=== PATIENT | female | born 2005 | race Caucasian/White ===

== ENCOUNTER 2023-11-07 10:28 | Emergency (ER) | payer OTHER ==
[2023-11-07] MEDS ORDERED: Ketorolac 10 MG Tab PO ONE (11:12)
[2023-11-07] MEDS ORDERED: traMADol 50 MG Tab PO ONE (11:12)
[2023-11-07] MEDS ORDERED: Take Home: Azithromycin 250 MG 5 Day, 6 Tab Pack PO ONE (11:14)
[2023-11-07] MEDS ORDERED: Take Home: traMADol 50 MG, 4 Tab Pack PO ONE (11:15)
[2023-11-07 11:26] VITALS: BP 128/69; PULSE 85
== END 2023-11-07 11:31 | disposition home or self-care (01) ==
LOC: LL.ED 10:28
DX: H66.92 Otitis media, unspecified, left ear (principal); Z88.0 Allergy status to penicillin; Z79.899 Other long term (current) drug therapy
CPT/HCPCS: 99282; A9270